=== PATIENT | female | born 1985 | race Caucasian/White ===

== ENCOUNTER 2016-10-09 15:01 | Inpatient (IN) | payer OTHER ==
[~2016-10-09] VITALS: Ht 154.9 cm; Wt 45.4 kg
--- NOTE | 2016-10-09 15:14 | ED PSYCHIATRIC COMPLAINT ---
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 Vital Signs & Intake/Output Vital Signs & Intake/Output Vital Signs Date Time Temp Pulse Resp B/P Pulse O2 O2 Flow FiO2 Ox Delivery Rate 10/10 1212 97.9 85 16 121/63 94 Room Air 10/10 0613 99.2 70 18 101/50 98 Room Air 10/10 0440 98 Room Air 10/10 0328 16 102/58 10/10 0225 16 92/54 10/10 0119 16 100/60 10/09 2345 90/58 10/09 2248 96.4 86 20 78/50 98 Room Air ED Intake and Output 10/10 0000 10/09 1200 Intake Total Output Total Balance Patient 99 lb 15.99 oz Weight Allergies Coded Allergies: No Known Allergies (10/09/16) Triage Nurses Notes Reviewed? yes HPI: Patient presents for evaluation of possible suicide ideation. The patient herself declines that there is any issue to that regard. According to the police she was TEXTING her boyfriend (left 4 days ago) that she would commit suicide. He contacted the police. (SHASHANK SHERIFF,CAMMIE Santana) Reconcile Medications Bupropion HCl (Bupropion XL) 150 MG TAB.ER.24H 1 TAB PO DAILY depression ( Reported) Hydroxyzine Pamoate 50 MG CAPSULE 50 MG PO TID PRN anxiety (Reported) Sertraline HCl 100 MG TABLET 1 TAB PO DAILY depression (Reported) LMP (ages 10-50): unknown : No Patient currently breastfeeds: No (SHIRA SHERIFF,FABIAN) Past History Travel History Traveled to [place] past 21 day No Medical History Any Pertinent Medical History? see below for history Surgical History Surgical History: unobtainable Family History Hx Contributory? No (UNOBTAINABLE) (SHASHANK SHERIFF,CAMMIE Santana) Review of Systems Review of Systems Constitutional: Reports: no symptoms. EENTM: Reports: no symptoms. Respiratory: Reports: no symptoms. Cardiovascular: Reports: no symptoms. GI: Reports: no symptoms. Genitourinary: Reports: no symptoms. Musculoskeletal: Reports: no symptoms. Skin: Reports: no symptoms. Neurological/Psychological: Reports: see HPI. Hematologic/Endocrine: Reports: no symptoms. Immunologic/Allergic: Reports: no symptoms. All Other Systems: Reviewed and Negative (SHASHANK SHERIFF,CAMMIE Santana) Physical Exam Physical Exam General Appearance: SEE BELOW Neurological/Psychiatric: SEE BELOW Comments: General: Alert, enterally uncooperative, clear sensorium Head: Normocephalic, atraumatic Eyes: Normal inspection, no nystagmus, EOMI Ears: Normal inspection Nose: Normal inspection Throat: Moist mucosa Neck: Supple, no goiter Lungs: Quiet respirations Abdomen: Nondistended Extremities: Normal range of motion grossly, no tremors present, no cyanosis clubbing or edema of the upper extremities Neurologic: cranial nerves II through XII grossly intact, speech clear, gait normal Psychiatric: No apparent delusions or hallucinations, no pressured speech or thought blocking, emotionally labile and prone to outbursts and tearfulness SAD PERSONS Done? patient not suicidal (SHASHANK SHERIFF,CAMMIE Santana) SAD PERSONS SAD PERSONS Response Value Depression/Hopelessness? yes 2 Previous Attempts/Psych Care yes 1 Excessive Ethanol/Drug Use? yes 1 Rational Thinking Loss? yes 2 Social Support? has support 0 Stated Future Intent? yes 2 Total 8 SAD PERSONS Done? yes (SHIRA SHERIFF,FABIAN) Progress Differential Diagnosis: GRIEF, DEPRESSION, BIPOLAR, BORDER LINE, DEPENDENT PERSONALITY Plan of Care: Orders Procedure Date/time Status Regular Diet 10/10 D Active Regular Diet 10/10 B Complete Continuous Observation Monitor 10/10 1500 Active Lab Add-on Test 10/10 1324 Active Patient Data - inpatient psych 10/10 1322 Active Admit to inpatient psych 10/10 1322 Active Continuous Observation Monitor 10/10 1100 Active Continuous Observation Monitor 10/10 0700 Active Vital Signs 10/10 UNK Active Nursing Misc 10/10 UNK Active Alternative Nursing Therapy 10/10 UNK Active Activity/Ambulation 10/10 UNK Active Continuous Observation Monitor 10/09 2011 Active THYROID STIMULATING HORMONE 10/09 1715 Complete HEPATIC FUNCTION PANEL 10/09 1715 Complete HUMAN BETA HCG SCREEN 10/09 1618 Complete ETHANOL 10/09 1618 Complete CBC WITHOUT DIFFERENTIAL 10/09 1618 Complete BASIC METABOLIC PANEL 10/09 1618 Complete URINE DRUG SCREEN FOR ER ONLY 10/09 1607 Complete ED CRISIS PSYCH CONSULT 10/09 1607 Active Current Medications Sig/Barbra Start time Last Medication Dose Stop Time Status Admin Bupropion HCl 150 MG 0800 10/11 0800 UNVr (Wellbutrin XL) Sertraline HCl 100 MG DAILY@0800 10/11 0800 UNVr (Zoloft) Al Hydroxide/Mg 30 ML Q4-6 PRN PRN 10/10 1330 AC Hydroxide (Maalox Plus) Gabapentin 300 MG Q6P PRN 10/10 1330 AC (Neurontin) Hydroxyzine HCl 50 MG TIDPRN PRN 10/10 1330 AC (Atarax) Magnesium Hydroxide 30 ML AT BEDTIME PRN 10/10 1330 AC (Milk Of Magnesia) Trazodone HCl 50 MG AT BEDTIME NEED.. 10/10 1330 AC (Desyrel) Laboratory Tests 10/09/16 1715: Anion Gap 13, Estimated GFR > 60, BUN/Creatinine Ratio 10.0, Glucose 95, Calcium 10.0, Total Bilirubin 1.2, Direct Bilirubin 0.6 H, AST 57 H, ALT 72 H, Alkaline Phosphatase 110, Total Protein 8.6 H, Albumin 4.7, TSH 3.560, Total Beta HCG NEGATIVE, CBC w Diff NO MAN DIFF REQ, RBC 4.74, MCV 85.7, MCH 29.2, RDW 12.7, MPV 7.8, Gran % 32.5 L, Lymphocytes % 53.6 H, Monocytes % 11.3 H, Eosinophils % 1.8, Basophils % 0.8, Absolute Granulocytes 2.9, Absolute Lymphocytes 4.8 H, Absolute Monocytes 1.0 H, Absolute Eosinophils 0.2, Absolute Basophils 0.1, PUBS MCHC 34.1, Serum Alcohol < 10.0 10/09/16 1700: Ref Lab Test Result Pending, Urine Opiates Screen < 100.00, Methadone Screen < 40, Barbiturate Screen < 60, Ur Phencyclidine Scrn < 6.00, U Benzodiazepines Scrn > 800 H, Urine Cocaine Screen < 50, Urine Cannabis Screen < 5.00 Comments: 10/09/2016 7:13:37 PM patient medicated with Ativan in order to calm her for the emergency department evaluation. Patient signed out to Dr. Dangelo at shift coverer. (SHASHANK SHERIFF,CAMMIE Santana) Hand-Off Endorsed To: FABIAN SILVA MD Endorsed Time: 0700 Pending: consult Comments: Patient had briefly fallen asleep after IM Ativan however she woke up and is verbally aggressive and is throwing things about her room. Patient has threatened to leave. At this point will give her more IM Ativan. Past with 10 minutes after receiving the Ativan patient ran down the hallway of the emergency department. Patient was able to be stopped and was redirected back to her room. Patient medicated with Benadryl and Haldol. The patient became hypotensive after all medications. Patient receiving IV fluids. (RASHAD DANGELO MD) Departure Departure Disposition: STILL A PATIENT Condition: Stable Referrals: PATIENT HAS NO PRIMARY CARE DR Departure Forms: Customer Survey General Discharge Information (SHASHANK SHERIFF,CAMMIE Santana) Departure Clinical Impression Primary Impression: Grief Secondary Impressions: Depression Psych Admission Note Psychiatric Admission: I have seen and evaluated KHAI LIVINGSTON. I have also reviewed all the pertinent lab results and diagnostic results. KHAI LIVINGSTON will be admitted to our inpatient Psychiatric unit for treatment and care. (FABIAN SILVA MD) Critical Care Note Critical Care Note Critical Care Time: mins: (30 MIN) (RASHAD DANGELO MD)
--- NOTE | 2016-10-09 15:20 | NUR ---
30 YO FEMALE BIBA ON PEC FROM HOME. PER PEC "PT SENT A TEXT MESSAGE TO HER BOYFRIEND SHOWING 11 ADDERROL AND SAID THERE WERE 36" PT ARRIVES CRYING AND SCREAMING STATING "I CANT LIVE WITHOUT HIM, WHERE IS HE, I WAS HERE WITH HIM AND I NEED HIM HERE WITH ME" PT STATING "I JUST THINK OF HURTING MYSELF SOMETIMES, I WOULD NEVER ACTUALLY DO IT" PT REDIRECTABLE AT TIMES, CHINO AND DR ENCARNACION AT BEDSIDE ON ARRIVAL TO ROOM. PT NOTED WITH SUPERFICIAL LACERATIONS TO L FOREARM, NO ACTIVE BLEEDING AT THIS TIME. PT STATING HER BOYFIREND "JUST LEFT" ON SUNDAY AND HE HASNT TALKED TO HER SINCE THEN. STATING "I CANT LIVE WIHTOUT HIM" PT YELLING OUT IN ROOM AND REUFSING TO "DO ANYTHING UNTIL HER BOYFRIEND GETS HERE"
--- NOTE | 2016-10-09 15:22 | NUR ---
PT MEDICATED WITH 2MG IM ATIVAN PER ORDER. PT WANDED BY SECUIRTY AND ASSISTED TO CHANGE INTO HOSP SCRUBS. SITTER REMAINS PRESENT. SECUIRTY REMIANS PRESENT AT THIS TIME.
--- NOTE | 2016-10-09 15:38 | NUR ---
PT HAS 2 BELONGING BAGS AND 1 VALUABLE BAG
--- NOTE | 2016-10-09 15:47 | NUR ---
1 VALUBLES BAG CONTAITING MEDS SENT TO [facility] AT THIS TIME. PT SITTING ON STRETCHER AT THIS TIME, SITTER AND SECUIRTY REMAINS PRESRNT. PT CALM AT THIS TIME. WILL CTM
--- NOTE | 2016-10-09 16:13 | NUR ---
PT STATING SHE WILL TRY TO GIVE URINE SAMPLE.
--- NOTE | 2016-10-09 16:21 | NUR ---
URINE SPECIMEN OBTAINED
[2016-10-09 17:32] LABS: ABSOLUTE BASOPHIL COUNT 0.1 /CUMM (0.0-0.2); ABSOLUTE EOSINOPHIL COUNT 0.2 /CUMM (0.0-0.7); ABSOLUTE GRANULOCYTE CT 2.9 /CUMM (1.4-6.5); ABSOLUTE LYMPH COUNT 4.8 /CUMM (1.2-3.4); BASOPHIL % 0.8 % (0.0-2.0); EOSINOPHIL % 1.8 % (0-5); HEMATOCRIT 40.6 % (37-47); MEAN CORPUSCULAR HGB 29.2 PG (27.0-31.0); MEAN CORPUSCULAR HGB CONC 34.1 G/DL (33.0-37.0); MEAN CORPUSCULAR VOLUME 85.7 FL (81.0-99.0); MEAN PLATELET VOLUME 7.8 FL (7.4-10.4); PLATELET COUNT 272 /CUMM (130-400); RBC DISTRIBUTION WIDTH 12.7 % (11.5-14.5); RED BLOOD CELL CT 4.74 /CUMM (4.20-5.40)
[2016-10-09 17:33] LABS: GRANULOCYTE % 32.5 % (42.2-75.2)
--- NOTE | 2016-10-09 17:36 | ED PSY CRISIS COLLATERAL NOTE ---
Collateral Note Collateral Note Family/Inform/Yoly Contacts: Pt's ex-boyfriend Luis Pineda called to express his concern about pt. He explains that he broke up with pt this weekend because she relapsed and he remains sober. They both went to Rehab 3 months ago and have been out for about 2 months. They have been attending AA together and have remained sober, but pt relapsed and he had to break up with her as he is still sober. He informed that pt booker a hx of cutting and expressing SI, but never to this extent and he is very worried that she will kill herself. He reports that pt threatened to OD on 30pills of 30mg of Adderall as well as xanax and alcohol. He reprots that pt has also recently cut herself. He would like to be updated on her dispo as they live together and he will go stay with a friend if she is coming back home.
--- NOTE | 2016-10-09 17:58 | NUR ---
PT SLEEPING AT THIS TIME, REG RESP RATE NOTED. SITTER REMAINS PRESENT. WILL CTM
--- NOTE | 2016-10-09 19:11 | NUR ---
ASSUMED CARE OF PT PER RN JEZ, PT RESTING IN RM WITH RR. WILL COTNINUE TO MONITOR, SITTER IN PLACE
--- NOTE | 2016-10-09 19:24 | NUR ---
PLEASE ALLOW FOR PT. TO CALL DONG CANCINO AT [phone]
--- NOTE | 2016-10-09 20:04 | NUR ---
PT AWOKE FROM SLEEPING BEGAN TO YELL AND BECOME VERBALLY AGGRESSIVE TOWARDS THIS RN AND THE SITTERS. PT BEGAN TO SCREAM STATING "I NEED A FUCKING VAPE, I NEED TO FUCKING GO OUTSIDE NOW OR I AM WALKING OUT OF HERE AMA" WHILE PT WAS STATING THIS PT TOOK OFF HER SOCKS AND BEGAN TO SCREAM AND YELL LOUDER. THIS RN INFORMED PT THAT OTHER PTS ARE IN THE HOSPITAL AND PT NEEDS TO KEEP HER VOICE DOWN AND BE RESPECTFUL. THIS RN THEN WENT INTO SPEAK WITH CRISIS WHO STATED THEY WOULD COME IN AND SPEAK WITH PT WHEN THEY WERE FINISHED CHARTING. WHILE PT WAS INFORMED THAT CRISIS WAS CHARTING AND WOULD BE IN SHORTLY PT BECAME AGGESSIVE, AND ACTING OUT. THIS RN WENT TO SPEAK WITH DR DANGELO WHO PRESCRIBED 2MG ATIVAN IM. THIS RN ADMINISTERED THE 2MG ATIVAN IM IN THE PTS LEFT ARM. CRISIS INFORMED ON THE SITUATION AND WILL INFORM THIS RN IF THEY WILL BE SEEING PT TONIGHT OR IF PT WILL BE STAYING THE NIGHT.
--- NOTE | 2016-10-09 20:12 | NUR ---
CRISIS AT BEDSIDE AT THIS TIME
--- NOTE | 2016-10-09 20:28 | NUR ---
THIS RN WAS INFORMED THAT CRISIS WAS AT THE BEDSIDE AND THE PT WOULD NOT SPEAK TO CRISIS ABOUT THE SITUATION AND GOT VERBALLY AGGRESSIVE AND LOUD STATING "I JUST WANT TO LEAVE". CRISIS THEN INFORMED THE PT THAT SHE WILL SPEAK WHEN THE PT IS READY TO SPEAK AND CALM AT THIS TIME THE PT THEN LEFT THE RM AND WALKED TO THE STAIRWELL IN POD 3, THIS RN AND SECURITY FOLLOWED THE PT AND THIS RN WA ABOUT TO TALK TO THE PT DOWN AND GO BACK INTO THE RM. THIS RN THEN MEDICATED THE PT WITH 25MG BENADRYL IM IN THE RIGHT ARM AND 5MG HALDOL IM IN THE RIGHT ARM. THE [facility] WILL KEEP THIS RN UPDATED. WILL CONTINUE TO MONITOR
--- NOTE | 2016-10-09 21:22 | NUR ---
PT SLEEPING WITH RR, 02 95% ON RA. WILL CONTINUE TO MONITOR, SITTER IN PLACE WITH DOOR WIDE OPEN
--- NOTE | 2016-10-09 22:16 | NUR ---
THIS RN SPOKE WITH EX (LYNETTE) AND INFORMED HIM OF SITUATION PER THE PT CARINAILER ([facility] [phone])
--- NOTE | 2016-10-09 22:47 | NUR ---
PT SLEEPING WITH RR, CHEST RISE AND FALL NOTED. WILL CONTINUE TO MONITOR, SITTER IN PLACE AT DOOR
--- NOTE | 2016-10-09 23:08 | NUR ---
PTS BP MANUALLY 78/50 CHECKED BY MST IN . THIS RN INFORMED DR DANGELO AND STARTED A LINE LAC #20 WHICH IS BOARDED FOR PROTECTION SINCE PT BENDS ARMS WHEN SHE SLEEPS, NS LITER #1 INFUSING BOLUS.
--- NOTE | 2016-10-10 00:04 | NUR ---
LITER #1 NS BOLUS FINISHED. PTS BP MANUALLY 90/50.
--- NOTE | 2016-10-10 00:10 | NUR ---
LITER #[address] DANGELO
--- NOTE | 2016-10-10 00:45 | NUR ---
PT SLEEPING AT THIS TIME WITH EQUAL RR
--- NOTE | 2016-10-10 01:26 | NUR ---
PTS BP MANUALLY WAS 100/60. DR DANGELO INFORMED
--- NOTE | 2016-10-10 01:26 | NUR ---
PT SLEEPING WITH RR, CHEST RISE AND FALL NOTED, PT SNORING AND TOSSING AND TURNING. WILL CONTINUE TO MONITOR, SITTER IN BH
--- NOTE | 2016-10-10 02:36 | NUR ---
PT SLEEPING WITH RR, TOSSING AND TURNING. CHEST RISE AND FAL NOTED. SITTER IN PLACE AT DOOR WILL CONTINUE TO MONITOR
--- NOTE | 2016-10-10 04:42 | NUR ---
PT SLEEPING WITH RR, VSS, DR DANGELO INFORMED. CHEST RISE AND FALL NOTED, SITTER STATES PT TOSSING AND TURNING. SITTER IN PLACE, WILL CONTINUE TO MONITOR
--- NOTE | 2016-10-10 06:08 | NUR ---
PT SLEEPING WITH RR, WILL CONTINUE TO MONITOR
--- NOTE | 2016-10-10 06:20 | NUR ---
THIS RN CHECKED PTS VS, VSS, PT SLEEPING AND INFORMED THAT BREAKFAST WOULD ARRIVE SHORTLY.
--- NOTE | 2016-10-10 07:32 | NUR ---
care assumed by this rn now.
--- NOTE | 2016-10-10 08:01 | NUR ---
PT SLEEPING, NORMAL RESP RATE NOTED. SITTER REMAINS AT BEDSIDE FOR PT SAFETY.
--- NOTE | 2016-10-10 12:12 | NUR ---
ASSUMED CARE OF THIS PT. PT ASLEEP AND WOKEN FOR VITALS. PT CALM AND COOPERATIVE. PT ASKING IF SHE WILL BE STAYING IN HOSPITAL. I TOLD HER I WOULD CHECK WITH CRISIS.
[2016-10-10] MEDS ORDERED: BUPROPION XL150 MG PO (13:26)
[2016-10-10] MEDS ORDERED: HYDROXYZINE PAM50 M1 PO (13:26)
[2016-10-10] MEDS ORDERED: SERTRALINE HCL100 MG PO (13:26)
--- NOTE | 2016-10-10 13:30 | NUR ---
PT BECOMING AGITATED, WAS TOLD BY CRISIS SHE NEEDS TO BE ADMITTED.
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
--- NOTE | 2016-10-10 14:06 | NUR ---
MEDICATED FOR AGITITATION WITH THORAZINE 100MG IN R AND L DELTOID.
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
--- NOTE | 2016-10-10 16:32 | NUR ---
DISCONTINUED PT'S IV DUE TO TRANSFER TO [facility].
[2016-10-10 16:56] VITALS: BP 92/58
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
[2016-10-10 20:10] VITALS: BP 82/56
[2016-10-11] VITALS (7 sets, daily range): BP systolic 95–116; BP diastolic 52–64
--- NOTE | 2016-10-11 12:14 | NUR ---
PT HAS BEEN IRRITABLE AT [facility] TODAY. SHE REMAINED IN BED FOR AN EXTENDED PERIOD. THE PATIENT WAS ENCOURAGED TO BE PROACTIVE C TREATMENT, TO PARTICIPATE IN GROUPS, AND TO SPEND TIME OUT OF HER BED. SHE DENIES SI AND AGREES TO COME TO STAFF OF SHE FEELS SUICIDAL.
--- NOTE | 2016-10-11 14:10 | SOCIAL WORKER PROG NOTE PSYCH ---
Social Work Progress Note Progress Note Met with patient for the first time today. Patient presented with bright mood and appeared somewhat anxious. Patient reports that she is eager to leave the hospital and after meeting with the doctor believes she may be out by Sunday. Patient reported that she has a hx of adderall addiction and relapsed on Sunday and Sunday. She denies taking more than 2 pills both days and denies attempting to commit suicide. Patient showed this commercial underwriter superficial cuts on her arm and denies that she was trying to kill herself by cutting herself. Patient believes her boyfriend who called the police has also relapsed on drugs and is avoiding her. She has been unable to get ahold of him since being in the hospital. Patient reports that she was for 2.5 years and identifies her ex , Natanael, to be her best friend. Patient called Natanael requesting for him to come in for a family meeting this week. Natanael is going to arrange his work schedule to attend at some point this week and will be in touch with me. Patient appears preoccupied on the thought of discharge and may be minimizing some of her current symptoms. She appeared hyperverbal at times and eager to present herself in a particular manner repetitively stating that she is not a threat to herself and does not need to be here.
--- NOTE | 2016-10-11 14:14 | SOCIAL WORKER TX PLAN PSYCH ---
Treatment Plan - Please Document: - Evidence that there is ongoing collaboration between - the patient and the interdisciplinary team, - including the patient's active participation and - responsibility for engaging in the treatment regimen, - and that the treatment plan is individualized and - relevant to the patient's conditions. - Treatment plan should reflect documentation indicating - that all active therapeutic efforts are included. Strengths/Capabilities: The patient does have a Masters Degree in Social Work and states that she has an upcoming job interview. Connected to treatment through the [facility] in [place]. Physical Limitations (Interventions): None noted Patient Identified Trmt Goals: " I want to get home and get on with my life." Discharge Plan: IOP Problem/Goals #1 Problem #1: suicidal ideation Goal (Short Term): Today I will attend 2 groups Today I will identify 2 stressors Today I will identify 2 positive supports Today I will work on recognizing 3 emotions I am feeling Goal (Care Home): Be free of suicidal thoughts/attempts Develop 3 coping skills to deal with depression Identify 3 positive support systems to call in crisis Develop a crisis plan with 3 purdy people Identify 2 positive traits per week about myself Identify 2 things I have to look forward to Identify 2 positive people in my life and 1 thing I appreciate about them Interventions: Learn ways to manage depressive symptoms accordingly and identify positive supports to manage life stressors and mood fluctuations. Modalities: Encourage groups, education on depression, provide CBT treatment, family meeting. DSM5/PS Stressors/Medical Prob Diagnosis' (DSM 5, Stressors, Medical): F32.9 Unspecified Depressive Disorder, F10.20 Alcohol use Disorder and F15.20 Stimulant Use Disorder- Amphetamine Type Current GAF: 25 Treatment Team - Responsibilities of members of the treatment team include: - Medication Management- MD or QUALITY ENGINEERING MANAGER - Medication Administration and Monitoring- Nurse - Group Therapy- Occupational Therapist - 1:1 Therapy,Disch Planning,family involvement-Client Resolution Specialist
--- NOTE | 2016-10-11 14:47 | CPS MD/APRN INITIAL ASSE PSYCH ---
Psychiatric Admission Dock Superintendent's Note Reviewed: Yes Patient Seen and Examined: Yes Identifying Information: 30 yo DWF with apparent depression, stimulant use disorder and alcohol use disorder who was admitted on 10/10/16 on a PEC from [facility] ER. Chief Complaint: Presently on a PEER after reportedly taking a pill overdose and cutting arm. Superficially cut left forearm. Patient denies having taken an overdose. She admits to relapsing with Addrerall. Reaction to Hospitalization: Required IM medications in the ER on the evening of 10/09/16, apparently due to agitation. Currently feels really upset about being here. Reports getting used to the fact that she is here. Doesn't want to be here. History of Present Illness Onset of Illness: Gratiot like relapsing last week. 10/06/16, was a difficult day for her. Circumstances Leading to Admission: PEER. Relapse with Adderall. Using alcohol. Possible breakup with boyfriend. Alleged overdose (patient denies) and superficially cut left forearm. Problem(s) Justifying Need for Admission: Possible SI. Relapse. Agitation in the ER. Other HPI: Staff reports that the patient was very sedated upon arrival to the unit. Upset BF called 911 about her. Admits to relapsing with Adderall. Denies overdosing. Gratiot like relapsing last week. 10/06/16, was difficult. BF works [employer]. His car broke down and she had been driving him around. Patient completed a 30 day rehab in [place], [place] and had been out almost 90 days. Relapsed last week with a few Adderall pills she procured from a friend and with some alcohol. 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 Reports she and her BF have been together about 1 year and started living together in January 2016. She is not clear if they broke up. He hasn't been returning her calls: "radio silence." Reports BF, 21 yo, is a heroin and crack addict and has had substance-induced psychosis in the past. She is afraid that he has relapsed and is "out there using." States that she lovees him to . Patient was father's CPOE. Father was a pedestrian in [place], was hit by a motor vehicle and sustained a TBI. He is in a SNF in [place] and one of the patient' s sisters is now CPOE. 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 Sleep: too deep here. Appetite: "it's starting to come back." Energy: "it's starting to come back." Past Psychiatric History Past Diagnosis(es)- if any: Depression. Adderall abuse. Past Precipitating Factors- if any: Substance use. - Include inpatient and outpatient treatment Treatment History: Outpatient: [facility]. Inpatient: none. History of Suicide Attempts or Gestures Pill overdose at 17 yo. Superficially cut BYPRODUCT ENGINEER "out of frustration." Was a cutter 14-17 yo for relief from pain she couldn't control. Substance Abuse History: Quit tobacco 1.5 years ago. Vapes nicotine. Agrees to nicorette gum. Alcohol: 0.5 bottle of wine or beer/day. Denies MJ. Adderall: recently 20 mg, #2. Cocaine in the past. Rehab ~90 days ago in [place], [place]. Allergies: Coded Allergies: animal dander (10/11/16) nicotine (From NICODERM CQ) (10/11/16) tree and shrub pollen (10/11/16) Home Med List: Zoloft 100 mg daily Wellbutrin XL 150 mg daily Vistaril 50 mg tid prn Seroquel 25 mg qhs prn (feels she won't need it here) - Include any medical condition(s) that may - impact the patient's recovery/remission Past History Medical History Neurological: NONE EENT: NONE Cardiovascular: NONE Respiratory: NONE Gastrointestinal: NONE Hepatic: NONE Renal: NONE Musculoskeletal: NONE Psychiatric: alcohol dependence, anxiety, substance abuse Endocrine: NONE Blood Disorders: NONE Cancer(s): NONE History of MRSA: No History of VRE: No History of CDIFF: No Isolation History: Standard Surgical History Surgical History: none Psychiatric Family/Social Hx Family History Psychiatric Illness: Father: TBI. Sister: bipolar disorder. Substance Use: Sister with bipolar d/o: alcohol. Paternal uncle: alcohol in recovery. Suicides: Denies. Social History Living Situation: Has been living with since 01/30. Significant Relationships (family/friends): Parents when she was 21 yo. Mother is Ethiopian and lives in [place]. Father had a TBI and is in a SNF in [place]. Has 3 younger sisters. in 04/01 after 2.5 year marriage. No children. Close to ex-. Education: Has lived in [facility], [place] and [place]. Graduated from [employer]. Attended [employer] in [place], then college in [place] then graduated from [employer]. 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 Legal: DWI arrest at 21 y.o. Healthly Behaviors Screening Tobacco Screening Tobacco Use from ED Docu: Current Daily Use (Vapers nicotine.) Daily Tobacco Use Amount/Type: Smokeless tobacco daily (Vapes.) - If tobacco counseling indicated - the following topics are required. - #1 Recognizing dangerous situations. - #2 Coping Skills. - #3 Basic information about quitting. Status of Tobacco Cessation Counseling: #1, #2 AND #3 Completed Cessation Med Status: Nicotine Gum Ordered Alcohol Screening - ETOH screen POS if BAL >=80 or Audit-C>= M4/F3 Audit-C Score from Diag Assess: 4 Blood Alcohol Level: Laboratory Tests 10/09 1715 Toxicology Serum Alcohol (<10 MG/DL) < 10.0 Alcohol Use Screening Results: Pos per Audit C &/or BAL - If ETOH counseling indicated - the following topics are required. - #1 Express concern about the patient's - drinking at unhealthy levels, include informing - of national norms for moderate drinking: - men <= 14 drinks/week, max 4 drinks/occasion - women <= 7 drinks/week, max 3 drinks/occasion - #2 Providing feedback, including linking alcohol to - negative physical effects (liver injury, hypertension) - negative emotional effects (relationship problems and - depression) - negative occupational consequences (reduced work - performance) - #3 Advising the patient to abstain from alcohol or - to drink below national norms for moderate drinking - (as listed above). Status of ETOH Use Counseling: #1, #2 AND #3 Completed. Metabolic Screening - Screen if on a Neuroleptic Medication - Metabolic screening should include: - Blood Pressure, BMI, Glucose or Hgb A1c, & a - Lipid profile from within the past 365 days. Metabolic Screening () Not Applicable, patient not on a neuroleptic. OR () Patient on a neuroleptic(s) . Enter below results for Glucose or Hemoglobin A1C, and lipid panel if obtained during the last 365 days. BMI: 18.900 Blood Pressure: 116/64 Laboratory Results (If applicable): Exam and Plan Mental Status Examination Ambulation Status: Ambulates without difficulty. Appearance: Casually dressed thin WF sitting in a chair in NAD. Attitude towards examiner: Polite and cooperative. Psychomotor activity: WNL. No psychomotor agitation/retardation. Behavior: WNL. Quality of speech: Normal in volume, rate and tone. Affect: Intense at times. Mood: "Hopeful that I'm talking to you. Agitated. I feel trapped a little." Sad ~4/10. Anxiety ~8/10. Denies feeling hopeless, helpless, worthless or guilty. Suicidal Ideation: Denies active and passive. Homicidal Ideation: Denies. Hallucinations: Denies AH and VH. Paranoid/Delusional Material: Denies PI and magical chandler. Difficulties with thought organization: None. Insight: Limited. Judgment: Limited. Orientation: Ox3. Cognition: Grossly intact. Memory Function: Grossly intact. Estimate of intellectual functioning: Above average. Assets/Strengths Patient Identified Assets/Strengths: Very open. Honest. Communicate. Like to get things done. Motivated. Impression/Plan Impression and Plan: The patient presented to the ER on a PEER in the context of alleged overdose, superficial cutting, Adderall abuse and possible break up with boyfriend. Drug screen was positive for benzodiazepines but not amphetamines. - Include all active medical diagnosis that require tx DSM 5 Diagnosis(es): Unspecified depression. Stimulant use disorder. Alcohol use disorder. - Initial Tx Plan for Active Psych & Medical Conditions Treatment Plan: Monitor on the unit for safety, mood disorder and substance withdrawal. Additional information is need from collaterals. Patient agrees to increase Zoloft dose to 150 mg daily. Continue Wellubtrin and prn hydroxyzine. Will hold off on Seroquel for now. - Factors that would help patient function - in a less restrictive setting. Factors: Absence of SI. No evidence of withdrawal. Safe discharge plan.
--- NOTE | 2016-10-11 15:56 | History & Physical ---
General Information and HPI History of Present Illness: This young female was admitted to the hospital when brought in by police. There is a questionable history of suicidal ideation and she claims that her boyfriend called the police thinking that she was going to kill herself but she does not have any ideas of harming herself. She denies any specific medical problems recently and claims that she just returned from [place] after drug rehabilitation. She reports that she was only taking Adderall XR no other illegal drugs. Her past history is only significant for previous psychiatric treatment in her teenage years when she was in high school and she denies any recent medical or psychiatric problem. 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 She claims she drinks 3-4 drinks but used to drink more previously. She denies any other illegal drug abuse at this time. She claims her parents are but there are in good health otherwise. She has 3 sisters and one of them also has some drug abuse specifically alcohol abuse history. Allergies/Medications Allergies: Coded Allergies: animal dander (10/11/16) [facility] ([facility]) (10/11/16) tree and shrub pollen (10/11/16) Home Med list Bupropion HCl (Bupropion XL) 150 MG TAB.ER.24H 1 TAB PO DAILY depression ( Reported) Hydroxyzine Pamoate 50 MG CAPSULE 50 MG PO TID PRN anxiety (Reported) Sertraline HCl 100 MG TABLET 1 TAB PO DAILY depression (Reported) Past History Travel History Traveled to [place] past 21 day No Medical History Neurological: NONE EENT: NONE Cardiovascular: NONE Respiratory: NONE Gastrointestinal: NONE Hepatic: NONE Renal: NONE Musculoskeletal: NONE Psychiatric: alcohol dependence, anxiety, substance abuse Endocrine: NONE Blood Disorders: NONE Cancer(s): NONE History of MRSA: No History of VRE: No History of CDIFF: No Isolation History: Standard Surgical History Surgical History: unobtainable Past Family/Social History Psychosocial History Where do you live? 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 EENTM: Denies: no symptoms. Cardiovascular: Denies: no symptoms. Respiratory: Denies: no symptoms. GI: Denies: no symptoms. Genitourinary: Denies: no symptoms. Musculoskeletal: Denies: no symptoms. Skin: Denies: no symptoms. Neurological/Psychological: Reports: see HPI, emotional problems. Hematologic/Endocrine: Denies: no symptoms. Immunologic/Allergic: Denies: no symptoms. All Other Systems: Reviewed and Negative Exam & Diagnostic Data Last 24 Hrs of Vital Signs/I&O Vital Signs Date Time Temp Pulse Resp B/P Pulse O2 O2 Flow FiO2 Ox Delivery Rate 10/11 1221 112 116/64 10/11 1157 96.4 112 116/64 10/10 2009 96.7 80 82/56 10/10 1656 96.3 124 92/58 10/10 1632 Room Air 10/10 1631 98.2 120 16 100/56 95 Room Air Intake & Output 10/11 1600 10/11 0800 10/11 0000 Intake Total Output Total Balance Patient 99 lb 15.99 oz Weight Physical Exam General Appearance Alert, Oriented X3, Cooperative, No Acute Distress Skin No Rashes, No Breakdown, No Significant Lesion HEENT Atraumatic, PERRLA, EOMI, Mucous Membr. moist/pink Neck Supple, No JVD, No thryomegaly, +2 Carotid Pulse wo Bruit Lymphatic Cervical nl Cardiovascular Regular Rate, Normal S1, Normal S2, No Murmurs, Gallops, Rubs Lungs Clear to Auscultation, Normal Air Movement Abdomen Soft, No Tenderness, No Hepatospenomegaly, No Masses Neurological Exam Findings: Normal Gait, Normal Speech, Strength at 5/5 X4 Ext, Normal Tone, Cranial Nerves 3-12 NL, Reflexes 2+ Cranial Nerves II through XII: Intact and within normal limits Extremities No Clubbing, No Cyanosis, No Edema, No Tenderness/Swelling Assessment/Plan Assessment: This young female is admitted to the hospital when she was brought in by the police that was called by her boyfriend according to the patient. Although there is a questionable history of suicidal ideation but the patient herself denies any ideas to harm herself. Her physical exam is essentially normal without any acute medical problems but on lab analysis her CBC shows lymphocytosis and her liver functions are somewhat elevated with slight elevation of AST and ALTs. Cause of lymphocytosis is not clear and may just be a recent viral infection whereas abnormal liver functions may be due to alcohol intake which may be more than what patient admits. We will recheck her CBC with differential as well as a Monospot test and liver functions as well as hepatitis antibodies C and hepatitis B antigen. At present there is no need for any treatment and will follow her as needed. As Ranked By This Provider Problem List: 1. Grief 2. Depression Miscellaneous Miscellaneous Documentation Attending Case Discussed With: MIGUEL ERVIN MD Primary Care Physician: UNKNOWN Patient sees these Specialists none Level of Patient Care: HENRRY Kwon Attending Review Statement Attending Statement Attending MD Statement: examined this patient, reviewed EMR data (avail), discussed with nursing Attending Assessment/Plan: This is a young female admitted for depression just returned from [place] after a drug rehabilitation. She claims she was only using Adderall and no other drugs. Her physical exam is fairly stable for the labs show abnormal differential with lymphocytosis and abnormal liver function tests. We will check her repeat CBC and Monospot test and liver function test as well as hepatitis CMP serologies and she will be seen when necessary.
--- NOTE | 2016-10-11 21:54 | NUR ---
PT HAS BEEN ISOLATIVE AND WITHDRAWNM, REMAINING IN BED FOR MAJORITY OF EVENING. REFUSED TO GET OUT OF BED FOR 2000 VITAL SIGNS, WE HAD TO TAKE HER VITALS WHILE SHE SLEPT. REFUSED WRAP UP MEETING. NO COMPLAINTS OR SI REPORTED. PT HAS A STABLE MOOD AND FLAT AFFECT.
[2016-10-12 07:54] LABS: ABSOLUTE BASOPHIL COUNT 0 /CUMM (0.0-0.2); ABSOLUTE EOSINOPHIL COUNT 0.3 /CUMM (0.0-0.7); ABSOLUTE GRANULOCYTE CT 2.2 /CUMM (1.4-6.5); ABSOLUTE MONOCYTE COUNT 0.5 /CUMM (0.10-0.60); EOSINOPHIL % 5.7 % (0-5); GRANULOCYTE % 43.2 % (42.2-75.2); HEMATOCRIT 36.7 % (37-47); MEAN CORPUSCULAR HGB 29.7 PG (27.0-31.0); MEAN CORPUSCULAR VOLUME 87.2 FL (81.0-99.0); MEAN PLATELET VOLUME 7.7 FL (7.4-10.4); PLATELET COUNT 192 /CUMM (130-400); RBC DISTRIBUTION WIDTH 12.9 % (11.5-14.5); RED BLOOD CELL CT 4.21 /CUMM (4.20-5.40); WHITE BLOOD CELL COUNT 5.1 /CUMM (4.8-10.8)
[2016-10-12 10:45] VITALS: BP 130/70
--- NOTE | 2016-10-12 11:00 | CP SOUTH PROGRESS NOTE PSYCH ---
Psych (Inpt) Progress Note Progress Note Include the following elements, when applicable: Involvement in the active treatment of the patient with behavioral observations of the patient and the patient's response to the treatment. Review of the ongoing treatment process in the context of the treatment plan. Indication of how multi-disciplinary staff members are carrying out the treatment plan. Plans for future interventions and recommendations for revision of the treatment plan. Liaison with other physicians/providers. Progress Note: [I discussed this patient's progress to date, current mental status, treatment process in the context of the treatment plan, and discharge planning with staff/ team in the daily morning inpatient team meeting. I also met with the patient myself in individual session.] SUBJECTIVE: "I'm ok. Really don't want to be here." OBJECTIVE: Current Medications Sig/Barbra Start time Last Medication Dose Route Stop Time Status Admin Al Hydroxide/Mg 30 ML Q4-6 PRN PRN 10/10 1330 AC Hydroxide PO Bupropion HCl 150 MG 10/11 0800 AC 10/12 PO 1044 Gabapentin 300 MG Q6P PRN 10/10 1330 AC PO Hydroxyzine HCl 50 MG TIDPRN PRN 10/10 1330 AC 10/10 PO 2039 Lorazepam 1 MG Q6 10/11 1800 AC 10/12 PO 0652 Lorazepam 2 MG Q2P PRN 10/11 1615 AC 10/11 PO 1618 Lorazepam 1 MG Q2P PRN 10/11 1615 AC PO Magnesium Hydroxide 30 ML AT BEDTIME PRN 10/10 1330 AC PO Multivitamins 1 TAB DAILY 10/11 1602 AC 10/12 PO 1044 Nicotine 2 MG Q2 HRS NEEDED PRN 10/11 1500 AC PO Sertraline HCl 150 MG DAILY@10/12 0800 AC 10/12 PO 1043 Sertraline HCl 50 MG ONCE ONE 10/11 1330 DC 10/11 PO 10/11 1331 1506 Sertraline HCl 100 MG DAILY@10/11 0800 DC 10/11 PO 1136 Trazodone HCl 50 MG AT BEDTIME NEED.. 10/10 1330 AC 10/10 PO 2038 Vital Signs Date Time Temp Pulse Resp B/P Pulse O2 O2 Flow FiO2 Ox Delivery Rate 10/12 1045 95.8 100 130/70 10/11 2028 96.4 87 95/62 01/25 2024 96.4 87 9510/11 1731 79 18 99/56 10/11 1614 124 9710/11 1554 124 10/11 1221 112 11610/11 1157 96.4 112 Lab Serum Alcohol < 10.0 MG/DL 10/09/16 1715 U Benzodiazepines Scrn > 800 NG/ML H 10/09/16 1700 ASSESSMENT: This was this physician underwriter's first encounter with the patient on CPS today. She is a 30-year old divorce, , female with a history of depression, stimulant use disorder and alcohol use disorder, who was admitted to CPS on 10/10/16 on a PEC from ED. She presented on PEER following an alleged pill overdose and cutting her left forearm superficially. He denied taking an overdose, however admitted to relapsing on #2 tabs of 20mg Adderall. During ED course, patient became agitated and recieved Haldol 5mg/Ativan 2mg/ benadryl 25mg IM on 10/09/16 at 20:32. Additionally on 10/10/16 at 14:05, she received Thorazine 100mg IM for agitation. She reported current stressors significant for possible break-up with boyfriend who hasn't been returning her phone calls; had been the former CPOE of her father who has a TBI and at a retirement facility in [place]; superficial cutting to manage stress; and substance abuse (Adderall and alcohol). Utox (+) for benzodiazepines on 10/09/16 at 17:00. Of note, patient had not received IM Ativan prior to collection of utox. Patient was unable to account for (+) BZD Utox. Today, on encounter, patient's behavior is cooperative, and somewhat guarded. Affect was constricted. Mood was "ok." Speech was normal in rate, tone and volume. Eye contact was appropriate. She reported sleeping "a lot" which she attributed to emergency medications given during ED course for agitation. Reported her energy is starting to come back. Reported appetite as fair. She reported fluctuating anxiety of 7-8/10 (10 being the worst), which she reported being her baseline. Reported present anxiety is secondary to being here and not having heard from her boyfriend, who has not returned her phone calls. Reported depression of 0/10 (10 being the worst). She denied feeling hopeless, helpless, and worthless. She denied passive and active suicidal ideation, plans and intent. She denied homicidal ideation. Thought process was linear and organized. Thought content was appropriate. Cognition was grossly intact. She reported tolerating increase in Zoloft well from 50mg to 150mg this morning, and denied untoward medication effects. She was not agreeable to making further medication changes. Given history of behavioral impulsivity, unstable upbringing , substance abuse, prior arrest for DUI, will continue to evaluate for underlying Bipolar disorder. Recommended trial of mood stabilizer (Li, VPA, CBZ) , however, patient was not agreeable. Patient has not scored on CIWA over past 15 hours. VSS, with mild tachycardia of 100. Will continue monitoring patient on CIWA and provide prn Ativan per CIWA protocol. Reviewed options of discharge aftercare treatment with patient, including IOP level of care. Patient resistant to IOP post discharge, reporting she gets more benefit from current treatment at the [facility] in [place], [place]. 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 Reported desire to abstain from substances. Denied urges/cravings to use alcohol or stimulants. PLAN: 1. Continue monitoring patient on unit for safety, mood and alcohol withdrawal. 2. Continue current medications. 3. Restart Seroquel 25mg prn at HS for insomnia. 4. Encourage trial of mood stabilizer. 5. Family meeting with patient's ex- today. 6. Dispo planning per primary team.
[2016-10-12 13:17] VITALS: BP 106/83
[2016-10-12 13:18] VITALS: BP 106/83
--- NOTE | 2016-10-12 14:26 | NUR ---
PT DID NOT ATTEND GROUPS AND ISOLATED IN HER ROOM MOST OF THE DAY. SHE WANTS TO GO HOME AND WAS ASKING APPROPRIATE QUESTIONS R/T THE PROCESS. SHE DENIES ANY SUICIDAL THOUGHTS AND HAS BEEN CALM AND COOPERATIVE
--- NOTE | 2016-10-12 16:52 | SOCIAL WORKER PROG NOTE PSYCH ---
Social Work Progress Note Progress Note Rodriguez had family meeting today with this press writer, Ariana Wilde APRN, and patients ex , Natanael. Patient presented as tearful throughout the entire meeting, expressing desire to discharge the hospital with Natanael immediately. Patient and Natanael were both explained that patient is not being discharged today and we have not decided on a discharge date as of yet. Patient hysterical, reporting that she does not belong here and that she did have suicidal thoughts prior to coming to the hospital, but that she never had any plans or acted on her thoughts. Patient denies attempting to OD on adderal and states she only take a few. Patient denies SI at present. Patient has not been participating in treatment since she was admitted. Together we discussed the importance of attending groups on the unit and being involved in therapy. Patient agreed that she will attend groups tomorrow. Patient is aware that we are recommending IOP although wishes to return to her outpatient providers. Patients outpatient providers do not accept her insurance and group therapy will cost too much at their agency. Patient is open to other alternatives.
[2016-10-12 17:25] VITALS: BP 97/59
[2016-10-12 19:40] VITALS: BP 113/71
[2016-10-12 20:02] VITALS: BP 113/71
--- NOTE | 2016-10-12 23:20 | NUR ---
Patient present on the unit. Attended AA. Appropriate, pleasant and cooperative. Denies SI, HI. Verbalizes readiness for discharge.
--- NOTE | 2016-10-13 04:31 | NUR ---
SLEPT WELL WITH NO ISSUES OR COMPLAINTS OBSERVED OR REPORTED.
[2016-10-13 07:47] VITALS: BP 96/58
[2016-10-13 07:55] VITALS: BP 95/58
[2016-10-13] MEDS ORDERED: HYDROXYZINE HCL50 M1 PO (11:00)
[2016-10-13] MEDS ORDERED: QUETIAPINE FUMA25 M1 PO (11:00)
[2016-10-13] MEDS ORDERED: ONE DAILY MULT1 EAC2 PO (11:00)
[2016-10-13] MEDS ORDERED: WELLBUTRIN SR150 M1 PO (11:00)
[2016-10-13] MEDS ORDERED: ZOLOFT100 M1 PO (11:00)
[2016-10-13] MEDS ORDERED: NICORELIEF2 MG PO (11:00)
[2016-10-13] MEDS ORDERED: ATIVAN0.5 M1 PO ×2 (11:00→11:07)
[2016-10-13] MEDS ORDERED: WELLBUTRIN XL150 M2 PO (11:04)
--- NOTE | 2016-10-13 11:12 | CP SOUTH PROGRESS NOTE PSYCH ---
Psych (Inpt) Progress Note Progress Note Include the following elements, when applicable: Involvement in the active treatment of the patient with behavioral observations of the patient and the patient's response to the treatment. Review of the ongoing treatment process in the context of the treatment plan. Indication of how multi-disciplinary staff members are carrying out the treatment plan. Plans for future interventions and recommendations for revision of the treatment plan. Liaison with other physicians/providers. Progress Note: [I discussed this patient's progress to date, current mental status, treatment process in the context of the treatment plan, and discharge planning with staff/ team in the daily morning inpatient team meeting. I also met with the patient myself in individual session.] SUBJECTIVE: "I feel good." OBJECTIVE: Current Medications Sig/Barbra Start time Last Medication Dose Route Stop Time Status Admin Al Hydroxide/Mg 30 ML Q4-6 PRN PRN 10/10 1330 AC Hydroxide PO Bupropion HCl 150 MG 0800 10/11 0800 AC 10/13 PO 0753 Gabapentin 300 MG Q6P PRN 10/10 1330 AC PO Hydroxyzine HCl 50 MG .STK-MED ONE 10/12 1940 DC PO 10/12 194 Hydroxyzine HCl 50 MG TIDPRN PRN 10/10 1330 AC 10/12 PO 1945 Lorazepam 0.5 MG Q8 10/12 2200 AC 10/13 PO 10/19 2159 0611 Lorazepam 1 MG Q6 10/11 1800 DC 10/12 PO 1804 Lorazepam 2 MG Q2P PRN 10/11 1615 AC 10/11 PO 1618 Lorazepam 1 MG Q2P PRN 10/11 1615 AC PO Magnesium Hydroxide 30 ML AT BEDTIME PRN 10/10 1330 AC PO Multivitamins 1 TAB DAILY 10/11 1602 AC 10/13 PO 0753 Nicotine 2 MG .STK-MED ONE 10/12 1938 DC PO 10/12 1939 Nicotine 2 MG Q2 HRS NEEDED PRN 10/11 1500 AC 10/13 PO 0948 Quetiapine Fumarate 25 MG AT BEDTIME NEED.. 10/12 1630 AC 10/12 PO 2343 Sertraline HCl 150 MG DAILY@0800 10/12 0800 AC 10/13 PO 0753 Trazodone HCl 50 MG AT BEDTIME NEED.. 10/10 1330 DC 10/10 PO 2038 Vital Signs Date Time Temp Pulse Resp B/P Pulse O2 O2 Flow FiO2 Ox Delivery Rate 10/13 1230 104 124/65 10/13 1226 104 124/65 10/13 0755 97.4 108 95/58 10/13 0747 97.4 108 96/58 10/12 2001 97.3 112 113/71 10/12 1940 97.3 112 113/71 10/12 1725 70 97/59 10/12 1725 70 97/59 10/13/16 EKG: Sinus tachycardia, rate of 122. QT= 316, YKk=681. Per Dr. Chaparro Armenta, EKG was otherwise normal. No inpatient or pharmacological intervention required. Patient to follow-up with outpatient PCP. ASSESSMENT: Met with patient today on the date of discharge. She presented A&Ox3. Speech was normal in rate, tone and volume. Affect was full-range. Mood was overall euthymic and mildly anxious. She had no complaints. She denied feeling hopeless, helpless, worthless and guilty. She reported anxiety of 4/10 (10 being the worst ) and depression of 0/10 (10 being the worst). She appeared future-oriented to follow-up with anticipated [employer] job, work on communication with her ex- and abstain from substance use by resuming AA/NA meetings and commit to outpatient psychiatric treatment. She denied passive and active suicidal ideation, plans and intent. She denied homicidal ideation. She stated and also believed she will not harm herself or others. She reported improved sleep on prn Seroquel 25mg. Reported her appetite as good. Thought process was organized and goal directed. Thought content was appropriate. She denied auditory and visual hallucinations. There was no evidence of paranoia or delusions. Cognition was grossly intact. She reported feeling safe and ready for discharge. HR was elevated this morning, EKG completed and reviewed by Dr. Chaparro Armenta. Per MD, EKG was normal, and no pharmacological treatment or inpatient intervention is required. Patient not scoring on CIWA. No evidence of alcohol withdrawal. Patient denied cardiac symptoms, including palpitations, SOB, dizziness, weakness. PLAN: 1. Patient to discharge into the care of her ex-, and return to his home. 2. F/u at [facility] in [place] on 10/17/16 at 4:45PM with clinician Sammy. 3. F/u at [facility] for medication intake on 10/25/16 at 9:15AM with Jozef Crawley APRN. 4. All discharge prescriptions were printed, reviewed with patient, and provided to patient. 5. F/u at [facility] with Dr. Albright on 10/17/16 at 3PM for elevated liver enzymes. 6. Abstain from all substances, and attend AA/NA for support in sobriety. 7. In the event of an emergency, call 911/go to nearest emergency department. Patient verbalized understanding of all instructions. Patient verbalized understanding of all instructions.
--- NOTE | 2016-10-13 12:25 | NUR ---
spoke with Dr Armenta regarding EKG showing tachycardia and pending discharge. Reviewed vital signs including blood pressure, HR and medications. EKG was faxed to MD. There will be no new orders at this time. Patient [facility].
[2016-10-13 12:26] VITALS: BP 124/65
[2016-10-13 12:30] VITALS: BP 124/65
--- NOTE | 2016-10-13 12:59 | SOCIAL WORKER PROG NOTE PSYCH ---
Social Work Progress Note Progress Note Patient to discharge the hospital today. I spoke with patients outpatient therapist, Sammy, at [facility] in [place]. Sammy is willing to continue seeing patient up to 2x weekly for therapy and is in support of patient discharging the hospital today. She does not believe patient is at risk of hurting herself today but does believe patient has chaotic relationship with significant other, Luis, that she needs to address or may end up back in a similar situation. She will meet with Sammy next 10/17/16 @ 4:45PM. Patient has also been recommended to follow up with an IOP program to address her substance abuse which patient agreed to look into. Patient will follow up with meds at OP and has intake and first med appointment on 10/25/16 @ 9:15am. Patient is aware and plans to attend all scheduled appointments. Patient denies SI/HI/AH/VH at present and is able to contract for safety.
--- NOTE | 2016-10-13 13:10 | DISCHARGE SUMMARY REPORT-PSYCH ---
Visit Information Visit Dates/Diagnosis' Admission Date: 10/10/16 Discharge Date: 10/13/16 Reason for Admission: Suicidal ideation Psy Discharge Primary Diag: Unspecified depressive disorder Psy Discharge Secondary Diag: Stimulant use disorder, moderate; alcohol use disorder, moderate; R/O Bipolar Disorder Hospital Course Significant Lab Findings: Lab ALT 72 U/L H 10/09/16 1715 ALT 69 U/L H 10/12/16 0625 AST 57 U/L H 10/09/16 1715 AST 79 U/L H 10/12/16 0625 Total Beta HCG NEGATIVE 10/09/16 1715 Hep B Core IgM Ab Conf NONREACTIVE 10/12/16 06 Hep Bs Antigen NONREACTIVE 10/12/16 0625 Hepatitis A IgM Ab NONREACTIVE 10/12/16 0625 Hepatitis C Antibody NONREACTIVE 10/12/16 0625 Infectious Borden Titer NEGATIVE 10/12/16 0625 U Benzodiazepines Scrn > 800 NG/ML H 10/09/16 1700 10/13/16 EKG: Sinus tachycardia, rate of 122. QT= 316, PJl=571, otherwise normal EKG per oil well service unit operator Dr. Amber Chaney. Per Dr. Chaparro Armenta who was consulted , EKG was otherwise normal. Per Dr. Chaparro Armenta, no inpatient or pharmacological intervention required. Course Complications: None. Consultations: The patient was seen for admission history and physical by Dr. Chaparro Armenta. Please see his note for additional information. Dr. Chaparro Armenta was additionally consulted for EKG with a rate of 122. Per Dr. Chaparro Armenta, EKG showed no acute findings. Further cardiac work-up and pharmacological intervention was not advised per MD. Allergies: Coded Allergies: animal dander (10/11/16) nicotine (From NICODERM CQ) (10/11/16) tree and shrub pollen (10/11/16) Hospital Course/TX Response: The patient was monitored on the unit for safety, mood disorder, and alcohol/ benzodiazepine withdrawal. She participated in multimodal treatments on the unit. The patient did not score on CIWA during hospital course. Zoloft was increased to 150mg every morning for anxiety and depression, and Wellbutrin XL 150mg was maintained. Seroquel 25mg prn at HS was restarted for insomnia. Ativan 1mg Q6 hours was decreased to 0.5mg Q8 hours for possible benzodiazepine withdrawal and anxiety. Atarax 50mg three times a day was restarted for anxiety. The patient tolerated all medications well and denied untoward medication effects. During the hospital course, the patient's mood and affect improved. Suicidal ideation remitted. A family meeting was held with the patient, her ex-, Nicolasa Thomas ROSE and this designer/writer. The patient's treatment progress, medication regimen, level of safety, and discharge planning were reviewed. The patient was resistant to treatment recommendation to follow-up with dual diagnosis IOP level of care, and refused recommendation. She was agreeable to resume treatment with clinician at [facility] in [place], and to follow-up with [facility] for medication management. The patient's ex- was agreeable to having the patient temporarily return to his home, until she could find a more perminent place to live. He was agreeable to discharge plan, and did not express any acute concerns related to planned discharge. On the date of discharge, 10/13/16, the patient presented A&Ox3. Speech was normal in rate, tone and volume. Affect was full-range. Mood was overall euthymic and mildly anxious. She had no complaints. She denied feeling hopeless, helpless, worthless and guilty. She reported anxiety of 4/10 (10 being the worst ) and depression of 0/10 (10 being the worst). She appeared future-oriented to follow-up with anticipated [employer] job, work on communication with her ex- and abstain from substance use by resuming AA/NA meetings and commit to outpatient psychiatric treatment. She denied passive and active suicidal ideation, plans and intent. She denied homicidal ideation. She stated and also believed she will not harm herself or others. She reported improved sleep on prn Seroquel 25mg at HS. Reported her appetite as good. Thought process was organized and goal directed. Thought content was appropriate. She denied auditory and visual hallucinations. There was no evidence of paranoia or delusions. Cognition was grossly intact. She reported feeling safe and ready for discharge. Discharge HBIPS - Tobacco Use Treatment Offered Post DC Medications Offered: Script Given-See Med List Post DC Tobacco Treatment Plan: [facility] Program Appt Date: 10/25/16 Program Appt Time: 1600 - EtOH/Drug Use D/O Treatment Offered Post DC Medications Offered: Ref Med EtOH/Drug Use D/O Post DC EtOH/SubAbuse TX Plan: Refused Post DC Tx Pgm Metabolic Screening - Screen if on a Neuroleptic Medication - Metabolic screening should include: - Blood Pressure, BMI, Glucose or Hgb A1c, & a - Lipid profile from within the past 365 days. Metabolic Screening () Not Applicable, patient not on a neuroleptic. OR ([X]) Patient on a neuroleptic(s) . Enter below results for Glucose or Hemoglobin A1C, and lipid panel if obtained during the last 365 days. BMI: 18.900 Blood Pressure: 124/65 Laboratory Results (If applicable): Lab Glucose 95 mg/dL 10/09/16 1715 Reviewed with patient need for ordering lipid panel, given restart of Seroquel 25mg prn at bedtime, and metabolic risks associated with neuroleptic. Patient refused lipid panel. Discharge Instructions General Discharge Information Discharge Medications: Discharge Medications- (Dose, route, freq, indication): HOME MEDICATION LIST START taking these NEW Home Medications: Nicotine Dose: ORAL, EVERY 2 HOURS Qty: 30 Printed (Nicorelief) 2 MG 2 Milligram NEEDED as needed for Refills: 0 GUM nicotine craving Last Taken:10/13/16 Time:10am Sertraline HCl Dose: ORAL, DAILY@0800 for Qty: 28 Printed (Zoloft) 100 MG 150 Milligram anxiety/depression Refills: 0 TABLET Take 1 and 1/2 tablet (150mg) by mouth every morning. Last Taken:10/13/16 Time:8am Quetiapine Fumarate Dose: ORAL, AT BEDTIME Qty: 14 Printed (Quetiapine 25 Milligram NEEDED as needed for Refills: 0 Fumarate) 25 MG INSOMNIA TABLET Take 1 tablet by mouth as needed at bedtime. Last Taken:10/12/16 Time:1145pm Hydroxyzine HCl Dose: ORAL, THREE TIMES A DAY Qty: 42 Printed (Hydroxyzine HCl) 50 50 Milligram NEEDED as needed for Refills: 0 MG TABLET SLEEP/Anxiety Take 1 tablet by mouth three times a day as needed. Last Taken:10/12/16 Time:8pm Multivitamin (One Dose: ORAL, DAILY for VITAMIN Qty: 14 Printed Daily Multivitamin) 1 Tablet SUPPORT Refills: 0 1 EACH TABLET Last Taken:10/13/16 Time:8am Bupropion HCl Dose: ORAL, Every Morning for Qty: 14 Printed (Wellbutrin XL) 150 150 Milligram depression Refills: 0 MG TAB.ER.24H Take 1 tablet by mouth every morning. Last Taken:10/13/16 Time:8am Lorazepam (Ativan) Dose: ORAL, EVERY 8 HOURS for Qty: 21 Printed 0.5 MG TABLET 0.5 Milligram anxiety Refills: 1 Take 1 tablet by mouth every 8 hours. Last Taken:10/13/16 Time:6am Printed prescriptions for all above discharge medications were reviewed with the patient and provided to the patient on the date of dicharge, 10/13/16. Multiple Neuroleptics: (X]) Not Applicable OR Document below three failed attempts at monotherapy, or a plan to taper to monotherapy, or augmentation of Clozapine. () Patient's Diet: Regular. Patient's Activity: No restrictions. DC Disposition: Patient to discharge into the care of Ex-, and return to his home. Recommendations: Patient was advised to please take medications. She was advised to abstain from all substances, and to resume AA/NA meetings and obtain a sponsor for support in sobriety. She was advised to follow-up with [facility] for assistance with smoking cessation, and OPS medication appointment with Jozef Crawley APRN. An appointment at [facility] was scheduled for patient as she expressed not having a PCP. She was advsied to follow-up with this appointment on 10/16/[address] Albright for elevated LFTs. She was scheduled an appointment at [facility], where she is already an established patient, and was advised to follow-up for after care treatment. She was advised that in the event of an emergency to call 911/ go to nearest emergency department. Patient verbalized understanding of all instructions. Referred To: [facility] [address] [place], [place] [address] [phone])[phone] *Primary Care appointment scheduled with Dr. Albright on 10/17/16 at 3PM. [facility] [address], [address] [place], [place] [phone])[phone], Ext. [phone] *Follow-up with Clinician Sammy at [facility] on 10/17/16 at 4:45PM. [facility] [address] [place] [address] [phone] *Medication intake scheduled on 10/25/16 at 9:15AM with Jozef Crawley APRN. [facility] [address] [place] [address] [phone])[phone] *Walk in to group on 10/25/16 at 4PM, bring appointment card. Copies To: LEIA DSOUZA; [facility]ER[facility],KEY; [facility]
== END 2016-10-13 13:50 | DRG 754 ==
LOC: ERH 15:01 → ERHI 10-10 13:22 → CP SOUTH 10-10 13:22 → ENPENDDIS 10-10 13:22 → CP SOUTH 10-10 16:42
PROVIDERS: Emergency Medicine; Internal Medicine; ADMIT Psychiatry & Neurology Psychiatry
DX: F32.9 Major depressive disorder, single episode, unspecified (principal)
CPT/HCPCS: 80324; 36415; 80307; 93005; 93010; 96360; 96361; 96372; 99291; G0480; J1200; J1630